=== PATIENT | female | born 1935 | race Caucasian/White ===

== ENCOUNTER 2017-03-15 15:14 | Inpatient (IN) | payer MEDICARE, OTHER ==
[~2017-03-15] VITALS: Ht 162.6 cm; Wt 59.9 kg
--- NOTE | 2017-03-23 17:08 | NUR ---
4040 - PATIENT DISCHARGED HOME/MD ORDER. NO IV ACCESS. APPTS. AND PRESCRIPTIONS GIVEN. OUT VIA WHEELCHAIR. HOME WITH DAUGHTER IN LAW VIA PRIVATE VEHICLE.
== END 2017-03-23 16:30 | disposition home or self-care (01) | DRG 390 ==
LOC: SWI 15:14
PROVIDERS: ADMIT Internal Medicine
DX: K56.3 Gallstone ileus (principal); R53.1 Weakness; E87.6 Hypokalemia; E83.42 Hypomagnesemia; E03.9 Hypothyroidism, unspecified; D64.9 Anemia, unspecified; R41.3 Other amnesia; E11.9 Type 2 diabetes mellitus without complications; Z79.84 Long term (current) use of oral hypoglycemic drugs; Z79.899 Other long term (current) drug therapy; Z88.8 Allergy status to other drugs, medicaments and biological substances; Z90.710 Acquired absence of both cervix and uterus; Z83.3 Family history of diabetes mellitus
CPT/HCPCS: 97161-GP; 97165